=== PATIENT | male | born 1975 | race Caucasian/White ===

== ENCOUNTER 2018-09-25 21:20 | Emergency (ER) | payer SELFPAY ==
[~2018-09-25] VITALS: Ht 167.6 cm; Wt 80.0 kg
[2018-09-26 02:02] VITALS: BP 122/68
== END 2018-09-26 01:35 | disposition home or self-care (01) ==
LOC: ER 21:20
DX: G47.00 Insomnia, unspecified (principal); F41.9 Anxiety disorder, unspecified; F32.9 Major depressive disorder, single episode, unspecified
CPT/HCPCS: 99283